=== PATIENT | male | born 1960 | race Caucasian/White ===

== ENCOUNTER → 2022-09-01 09:56 | Outpatient (CLI) | payer BC, SELFPAY ==
--- NOTE | 2022-09-01 09:56 | CT_ITS ---
FINAL REPORT TECHNIQUE: Noncontrast CT exam of the abdomen and pelvis. This study was performed with techniques to keep radiation doses as low as reasonably achievable (ALARA). Individualized dose reduction techniques using automated exposure control or adjustment of mA and/or kV according to the patient''s size were employed. CLINICAL HISTORY: left sided Abdominal pain FINDINGS: Abdomen: Lung bases are clear. Liver, spleen, pancreas and adrenal glands have a normal CT appearance in their limited unenhanced state. The patient is status post cholecystectomy. The kidneys show no stone disease or obstruction. No obvious renal mass is present. No ureteral stones are present. Pelvis: The appendix is not visualized. The prostate is unremarkable. There is no bowel obstruction. No distal ureteral stones are seen. The urinary bladder is decompressed. No fluid collection or adenopathy is seen. IMPRESSION: No acute findings or abnormality to account for symptoms. Reviewed, Interpreted and Dictated by Nikki Macias MD Transcribed by Genevieve Stanton Authenticated and [facility]
== END ==
PROVIDERS: PCP Family Medicine; Visit Provider Family Medicine
DX: R10.9 Unspecified abdominal pain (principal)
CPT/HCPCS: 74176

== ENCOUNTER → 2023-05-12 08:40 | Outpatient (CLI) | payer BC, SELFPAY ==
[2023-05-12 18:22] LABS: Basophils % 0.3 % (0.1-2.0); Eosinophils # 0.2 K/mm3 (0.0-0.4); Eosinophils % 2.7 % (0.1-12.0); Hematocrit 49.5 % (42.0-52.0); Lymphocytes # 1.8 K/mm3 (0.7-4.5); Lymphocytes % 20.8 % (10-50); Mean Corpuscular HGB Conc 32.4 g/dL (31.8-35.4); Mean Corpuscular Hemoglobin 28.9 pg (27.0-31.2); Mean Corpuscular Volume 89.2 fl (80-94); Mean Platelet Volume 9.5 fl (7.4-10.4); Monocytes # 0.7 K/mm3 (0.1-1.0); Monocytes % 8.6 % (1.7-9.3); Neutrophils # 5.8 K/mm3 (1.8-7.8); Neutrophils % 67.6 % (37.0-80.0); Platelet Count 271 K/mm3 (142-424); Red Blood Count 5.54 M/mm3 (4.60-6.20); Red Cell Distribution Width 14.1 % (11.5-17.5); White Blood Count 8.5 K/mm3 (4.8-10.8)
[2023-05-12 18:33] LABS: Alanine Aminotransferase 24 U/L (12-78); Albumin Level 4.2 g/dl (3.5-5.0); Albumin/Globulin Ratio 1.4 (1.1-1.8); Alkaline Phosphatase 90 U/L (38-126); Anion Gap 13.3 mEq/L (5-15); Aspartate Amino Transferase 28 U/L (17-59); Bilirubin,Total 0.6 mg/dl (0.2-1.3); Blood Urea Nitrogen 11 mg/dl (9-20); Calcium 9.4 mg/dl (8.4-10.2); Carbon Dioxide 25 mmol/L (22.0-30.0); Chloride 104 mmol/L (98-107); Chol/HDL Ratio 3.6 (1-3.5); Cholesterol 225 mg/dl (140-200); Estimated Glomerular Filt Rate 137 ml/min (>60); GFR (African American) 166 ML/MIN (>60); Glucose 117 mg/dl (74-100); HDL Cholesterol 63 mg/dl (40-60); Potassium 4.3 mmoL/L (3.5-5.1); Sodium 138 mmol/L (136-145); Total Protein,Serum 7.2 g/dl (6.3-8.2); Triglycerides 270 mg/dl (30-150); VLDL Cholesterol 54 mg/dL (0-40)
[2023-05-12 18:51] LABS: Direct LDL Cholesterol 108.41 mg/dL (100-129)
[2023-05-12 19:04] LABS: Prostate Specific Ag Screen 0.3 ng/ml (0.0-4.0); Thyroid Stimulating Hormone 1.05 uIU/mL (0.465-4.68)
== END ==
PROVIDERS: PCP Family Medicine; Visit Provider Family Medicine
DX: F41.9 Anxiety disorder, unspecified (principal)
CPT/HCPCS: 80053; 80061; 84443; 85025; G0103

== ENCOUNTER 2024-11-15 12:01 | Outpatient (CLI) | payer BC, SELFPAY ==
[2024-11-15 17:44] LABS: Basophils % 0.6 % (0.1-2.0); Eosinophils # 0.3 K/mm3 (0.0-0.4); Eosinophils % 4.4 % (0.1-12.0); Hematocrit 42.8 % (42.0-52.0); Hemoglobin 13.9 g/dL (14.1-18.0); Lymphocytes # 1.7 K/mm3 (0.7-4.5); Lymphocytes % 25.3 % (10-50); Mean Corpuscular HGB Conc 32.5 g/dL (31.8-35.4); Mean Corpuscular Volume 89.4 fl (80-94); Mean Platelet Volume 10.2 fl (7.4-10.4); Monocytes # 0.7 K/mm3 (0.1-1.0); Monocytes % 9.7 % (1.7-9.3); Neutrophils # 4.1 K/mm3 (1.8-7.8); Neutrophils % 59.6 % (37.0-80.0); Nucleated Red Blood Cells # 0 10^3/uL; Nucleated Red Blood Cells % 0 %; Platelet Count 239 K/mm3 (142-424); Red Blood Count 4.79 M/mm3 (4.60-6.20); Red Cell Distribution Width 13.9 % (11.5-17.5); Red Cell Distribution Width-SD 45.3 fL; White Blood Count 6.8 K/mm3 (4.8-10.8)
[2024-11-15 18:45] LABS: Hemoglobin A1C 5.4 % (4.0-6.0)
[2024-11-15 18:55] LABS: Alanine Aminotransferase 22 U/L (12-78); Albumin Level 3.9 g/dl (3.5-5.0); Albumin/Globulin Ratio 1.4 (1.1-1.8); Alkaline Phosphatase 80 U/L (38-126); Anion Gap 14.1 mEq/L (5-15); Aspartate Amino Transferase 24 U/L (17-59); Bilirubin,Total 0.5 mg/dl (0.2-1.3); Blood Urea Nitrogen 10 mg/dl (9-20); Calcium 9.2 mg/dl (8.4-10.2); Carbon Dioxide 24 mmol/L (22.0-30.0); Chloride 101 mmol/L (98-107); Chol/HDL Ratio 4.3 (1-3.5); Cholesterol 219 mg/dl (140-200); Estimated Glomerular Filt Rate 137 ml/min (>60); GFR (African American) 165 ML/MIN (>60); Globulin 2.8 g/dL (1.3-3.2); Glucose 116 mg/dl (74-100); HDL Cholesterol 51 mg/dl (40-60); Potassium 4.1 mmoL/L (3.5-5.1); Sodium 135 mmol/L (136-145); Total Protein,Serum 6.7 g/dl (6.3-8.2); Triglycerides 230 mg/dl (30-150); VLDL Cholesterol 46 mg/dL (0-40)
[2024-11-15 19:06] LABS: Direct LDL Cholesterol 114.71 mg/dL (100-129)
[2024-11-15 19:26] LABS: Prostate Specific Ag Screen 0.3 ng/ml (0.0-4.0); Thyroid Stimulating Hormone 0.79 uIU/mL (0.465-4.68)
[2024-11-15 19:38] LABS: HIV Combo NEGATIVE (Negative)
[2024-11-15 19:48] LABS: Hepatitis C Ab Qual. W/ RFX NEGATIVE (Negative)
--- OUTSIDE RECORDS SUMMARY | 2024-11-17 12:03 | XMS_ITS ---
Author Organization Unknown Medications Medication Instructions Effective Dates (start - stop) Status lorazepam 1 MG Oral Tablet 00:00:00.000+00 :00 - Completed dicyclomine hydrochloride 20 MG Oral Tablet [id number]:00:00.000+00 :00 - Completed clonidine hydrochloride 0.2 MG Oral Tablet 0511-68-26U02:00:00.000+00 :00 - Completed pravastatin sodium 40 MG Oral Tablet 0135-01-65I82:00:00.000+00 :00 - Completed metformin hydrochloride 500 MG Oral Tablet 7368-58-74Z91:00:00.000+00 :00 - Completed pravastatin sodium 40 MG Oral Tablet 6646-64-99W77:00:00.000+00 :00 - Completed lorazepam 1 MG Oral Tablet :00:00.000+00 :00 - Completed lorazepam 1 MG Oral Tablet :00:00.000+00 :00 - Completed betamethasone 0.5 MG/ML Topi fredy Cream 5198-15-47L37:00:00.000+00 :00 - Completed lorazepam 1 MG Oral Tablet :00:00.000+00 :00 - Completed clindamycin 300 MG Oral Capsule 7025-49-25C77:00:00.000+00 :00 - Completed lorazepam 1 MG Oral Tablet :00:00.000+00 :00 - Completed carvedilol 25 MG Oral Tablet 10-11-06:00:00.000+00 :00 - Completed fluticasone propionate 0.05 MG/ACTUAT Metered Dose Nasal [place]on 3310-78-04R43:00:00 .000+00 :00 - Completed amlodipine 10 MG Oral Tablet 09-18-11:00:00.000+00 :00 - Completed fluticasone propionate 0.05 MG/ACTUAT Metered Dose Nasal [place] 8972-64-10B05:00:00 .000+00 :00 - Completed [id number] 200 ACTUAT albuter ol 0.09 MG/ACTUAT Metered Dose Inhaler 2459-97-86A04:00:00.000 +00 :00 - Completed [id number] 200 ACTUAT albuter ol 0.09 MG/ACTUAT Metered Dose Inhaler 9359-28-69K73:00:00.000 +00 :00 - Completed hydralazine hydrochloride 50 MG Oral Tablet 0810-53-85A58:00:00.000+00 :00 - Completed hydrochlorothiazide 12.5 MG Oral Tablet 2103-38-95S25:00:00.000+00 :00 - Completed hydralazine hydrochloride 50 MG Oral Tablet 3800-81-29J64:00:00.000+00 :00 - Completed fluticasone propionate 0.05 MG/ACTUAT Metered Dose Nasal [place] 2739-57-05S13:00:00 .000+00 :00 - Completed fluticasone propionate 0.05 MG/ACTUAT Metered Dose Nasal [place] 9647-15-58I98:00:00 .000+00 :00 - Completed fluticasone propionate 0.05 MG/ACTUAT Metered Dose Nasal [place] 9654-22-13H99:00:00 .000+00 :00 - Completed lisinopril 40 MG Oral Tablet 09-15-12:00:00.000+00 :00 - Completed fluticasone propionate 0.05 MG/ACTUAT Metered Dose Nasal [place] 5651-20-34Y81:00:00 .000+00 :00 - Completed hydrochlorothiazide 12.5 MG Oral Tablet 1918-02-31E80:00:00.000+00 :00 - Completed hydrochlorothiazide 12.5 MG Oral Tablet 8265-09-18W56:00:00.000+00 :00 - Completed clindamycin 300 MG Oral Capsule 1282-31-21C16:00:00.000+00 :00 - Completed carvedilol 25 MG Oral Tablet 09-18-28:00:00.000+00 :00 - Completed fluticasone propionate 0.05 MG/ACTUAT Metered Dose Nasal [place] 1137-14-88B09:00:00 .000+00 :00 - Completed hydrochlorothiazide 12.5 MG Oral Tablet 7610-97-13C13:00:00.000+00 :00 - Completed carvedilol 25 MG Oral Tablet 10-08-09:00:00.000+00 :00 - Completed lisinopril 40 MG Oral Tablet 09-18-11:00:00.000+00 :00 - Completed amlodipine 10 MG Oral Tablet 09-15-12:00:00.000+00 :00 - Completed fluticasone propionate 0.05 MG/ACTUAT Metered Dose Nasal [place] 7404-35-27K13:00:00 .000+00 :00 - Completed lorazepam 1 MG Oral Tablet :00:00.000+00 :00 - Completed lorazepam 1 MG Oral Tablet :00:00.000+00 :00 - Completed amoxicillin 875 MG / clavula marshall 125 MG Oral Tablet 9990-96-35O02:00:00.000+00 :00 - Completed amlodipine 10 MG / benazepri l hydrochloride 40 MG Oral Capsule 8250-35-03V05:00:00.0 00+00 :00 - Completed polyethylene glycol 3350 236 000 MG / potassium chloride 2970 MG / sodium bicarbonate 6740 MG / sodium chloride 5860 MG / sodium sulfate 57278 MG Powder for Oral Solution [Gavilyte-G] 0785-35-90P84:00:00.000+00 :00 - Completed Patient Care team information Name Category Status Period Participants - - Proposed period not known -
--- OUTSIDE RECORDS SUMMARY | 2024-11-17 12:03 | XMS_ITS | Data Portability ---
Author Organization [place] - [facility] & [place] [facility] Address [address] [place] [address] Care Team Providers Care Battery Mechanic Name Role Phone MARCO ANTONIO LONG Primary Care Provider Assessment No assessment recorded. Plan of Treatment Reminders Order Date Submit Date Provider Last Modified By Organization Details Last Modified Time Details Appointments None recorded. Lab None recorded. Referral None recorded. Procedures home sleep testing (PROC) 023 023 ANTONI Reyes (Outpatient Surgery), [address] [place] [address] [place], [address], 3 13:52:26 Surgeries None recorded. Imaging XR, knee 023 023 hussain Duarte [facility], [address] [place] [address] [place], [address], 3 09:43:52 Medication Orders None recorded. Patient TargetsNo targets recorded. Patient InstructionsNo instructions recorded. Reason for Referral None Reported. Results Created Date Observation Date Name Description Value Unit Range Abnormal Flag Note LastModifiedBy Organization Detail LastModifiedTime 07/25/20 23 XR, knee No observ ation record ed. ANTONI [address] [place], [address], 07/25/2023 08:53:42 08/04/20 23 08/04/2023 home sleep testi ng (PROC ) No observ ation record ed. [facility] [address] [place] [address] [place], [address], 08/17/2023 08:45:04 Result Notes None recorded. Problems Name Problem SNOMED Code Status Onset Date Resolution Date Notes Provider Name and Address Organization Details Recorded Time Hypertensive disorder 33643806 Active Lawanda Paulo null, [place] - [facility] - [facility] & [place] 2 08:33:02 Sleep apnea 86883546 Active Lawanda Paulo null, [place] - [facility] - [place] & [place] 2 08:33:12 Seasonal allergic rhinitis 417054739 Active Lawanda Paulo null, [place] - [facility] - [facility] & [place] 2 08:33:23 Arthritis 8598278 Active Lawanda Paulo null, [place] - [facility] - [facility] & [place] 2 08:35:11 Tonsillar tag 26136673 Active Lawanda Paulo null, [place] - [facility] - [facility] & [place] 2 09:42:45 Problem Notes None recorded. Procedures Surgical History Date Name Laterality Status Provider Name and Address Organization Details Recorded Time 07/17/20 23 Fiberoptic Laryngoscopy completed Carmen Banerjee MD [address], [place], [address], [place] - [facility] - [place] & [place] 07/17/2023 09:50:10 01/17/20 23 Fiberoptic Laryngoscopy completed Carmen Banerjee MD [address], [place], [address], [place] - [facility] & [place] 01/16/2023 09:35:02 07/25/20 22 Fiberoptic Laryngoscopy completed Carmen Banerjee MD [address], [place], [address], [place] - [facility] - [facility] & [place] 07/25/2022 14:38:54 12/01/19 21 total knee replacement completed Lawanda Paulo [place] - [facility] - [place] & [place] 07/22/2022 08:37:57 10/06/19 21 cholecystectomy completed Lawanda Paulo [place] - [facility] - [facility] & [place] 07/22/2022 08:38:23 08/07/19 21 total knee replacement completed Lawanda Paulo [place] [facility] & [place] 07/22/2022 08:38:04 08/07/19 21 Other completed Lawanda Paulo [place] - [facility] - [facility] & [place] 07/25/2022 09:42:06 08/07/19 21 Joint Replacement completed Lawanda Paulo [place] - [facility] - [facility] & [place] 07/25/2022 09:42:06 08/07/19 20 Joint Replacement completed Lawanda Paulo [place] [facility] & [place] 07/25/2022 09:42:06 10/06/19 14 procedure on back completed Lawanda Paulo [place] [facility] & [place] 07/22/2022 08:36:03 08/07/19 14 Back Surgery completed Lawanda Paulo [place] [facility] & [place] 07/25/2022 09:42:06 colonoscopy completed Krissysanchez Souza [place] - [facility] - [place] & [place] 01/16/2023 09:11:49 Imaging Results Imaging Date Name Status LastModified by Organiz ation Details LastModified Time 07/25/2023 XR, knee completed ANTONI [address] [place], [address], 07/25/2023 08:53:42 08/04/2023 home sleep testing (PROC) completed [facility] [address] [place] [address] [place] [facility], [address], 08/17/2023 08:45:04 Procedure Notes None recorded. Medical Equipment None Reported. Allergies Allergen ID Allergen Name Allergen Category Reaction Reaction Severity Criticality Documentation Date Start Date Code Code System Note Provider Name and Address Organization Details Recorded Time 57356 Product containin g penicilli n (product) medicatio n Not available Not available Not available 07/22/2022 02387 8001 SNOMED Lawanda Paulo null, [place] - [facility] - [place] & [place] 08:40:13 Medications Name Sig Start Date Stop Date Status Note LastModified by Organization Details LastModified Time cyclobenzap rine 10 mg tablet TAKE ONE TABLET BY MOUTH EVERY 8 HOURS NEEDED active Not Available Not Available No t Available metformin 500 mg tablet TAKE ONE TABLET BY MOUTH EVERY DAY IN THE EVENING 01/16 completed Not Available Not Available Not Available carvedilol 25 mg tablet TAKE ONE TABLET BY MOUTH TWICE DAILY, must administe r with a meal/food active Not Available Not Available No t Available prednisone 10 mg tablet TAKE SIX TABLETS ON DAY ONE, TAKE FIVE TABLETS ON DAY TWO, TAKE 4 TABLETS ON DAY THREE, TAKE THREE TABLETS ON DAY FOUR, TAKE TWO TABLETS ON DAY FIVE AND TAKE ONE TABLET ON DAY SIX 07/22 completed Not Available Not Available Not Available clindamycin HCl 300 mg capsule TAKE FOUR CAPSULES BY MOUTH ONE hour BEFORE appointme nt active Not Available Not Available No t Available azithromyci n 250 mg tablet TAKE ONE TABLET BY MOUTH ONCE DAILY FOR FOUR DAYS 07/22 completed Not Available Not Available Not Available pravastatin 40 mg tablet TAKE ONE TABLET BY MOUTH EVERY DAY 01/16 completed Not Available Not Available Not Available hydralazine 25 mg tablet Take ONE tablet by MOUTH TWICE DAILY 07/22 completed Not Available Not Available Not Available amlodipine 5 mg tablet TAKE ONE TABLET BY MOUTH EVERY DAY active Not Available Not Available No t Available clonidine HCl 0.2 mg tablet take ONE tablet by MOUTH TWICE DAILY as needed 01/16 completed Not Available Not Available Not Available dicyclomine 20 mg tablet TAKE ONE TABLET BY MOUTH THREE TIMES DAILY NEEDED FOR abdominal discomfor t 07/07 completed Not Available Not Available Not Available amlodipine 10 mg tablet Take ONE tablet by MOUTH DAILY active Not Available Not Available No t Available betamethaso ne dipropionat e 0.05 % topical cream APPLY TO THE AFFECTED AREA(S) DAILY NEEDED active Not Available Not Available No t Available hydralazine 50 mg tablet TAKE ONE TABLET BY MOUTH TWICE DAILY active Not Available Not Available No t Available pravastatin 20 mg tablet TAKE ONE TABLET BY MOUTH AT BEDTIME 07/22 completed Not Available Not Available Not Available lorazepam 1 mg tablet TAKE ONE TABLET BY MOUTH EVERY 12-24 hours NEEDED FOR anxiety. USE sparingly when possible active Not Available Not Available No t Available albuterol sulfate HFA 90 mcg/actuati on aerosol inhaler INHALE TWO puffs BY MOUTH FOUR TIMES DAILY NEEDED active Not Available Not Available No t Available lisinopril 40 mg tablet TAKE ONE TABLET BY MOUTH DAILY active Not Available Not Available No t Available fluticasone propionate 50 mcg/actuati on nasal spray,suspe nsion SPRAY ONE SPRAY IN EACH NOSTRIL EVERY DAY active Not Available Not Available No t Available naproxen 500 mg tablet TAKE ONE TABLET BY MOUTH TWICE DAILY active Not Available Not Available No t Available amoxicillin 875 mg-potassiu m clavulanate 125 mg tablet Take 1 tablet by mouth 2 times per day for 10 days 01/16 completed Not Available Not Available Not Available azithromyci n 500 mg tablet TAKE ONE TABLET BY MOUTH DAILY FOR 3 DAYS active Not Available Not Available No t Available amlodipine 10 mg-benazepr il 40 mg capsule Take ONE capsule by MOUTH DAILY active Not Available Not Available No t Available hydrochloro thiazide 12.5 mg tablet TAKE ONE TABLET BY MOUTH EVERY DAY active Not Available Not Available No t Available GaviLyte-G 236 gram-22.74 gram-6.74 gram-5.86 gram oral solution take as directed by Dr. Pedraza office 01/16 completed Not Available Not Available Not Available Vitals Date Recorded Body height Body mass index (BMI) Body weight Oxygen saturation Oxygen saturation in Arterial blood by Pulse oximetry Heart rate Body temperature Systolic blood pressure Diastolic blood pressure Provider Name and Address Organization Details Last Updated DateTime 3 172.72 cm 45.2 kg/m2 819308. 93 g 97 % 97 % 77 /min 97.9 [degF] 168 mm[Hg] 90 mm[Hg] Krissy Souza [place] - [facility] & [place] 3 09:05:50 Date Recorded Body height Provider Name an d Address Organization Details Last Updated DateTime 07/25/2023 172.72 cm Ruth Gabriel [place] - [facility] & [place] 07/25/2023 08:49:36 Date Recorded Body height Body mass index (BMI) Body weight Body temperature Oxygen saturation Oxygen saturation in Arterial blood by Pulse oximetry Heart rate Systolic blood pressure Diastolic blood pressure Provider Name and Address Organization Details Last Updated DateTime 2 172.72 cm 45.8 kg/m2 985906. 3 g 96.2 [degF] 95 % 95 % 69 /min 182 mm[Hg] 90 mm[Hg] Lawanda Chakraborty [facility] & [place] 09:41:14 Social History Question Answer Notes LastModified by Organizat ion Details LastModified Time Tobacco Smoking Status Current Every Day Smoker Lawanda Bates null, [facility] [place] 07/22/2022 08:39:54 Do You Have An Advance Directive? No Information not available 07/25/2022 What Is Your Level Of Alcohol Consumption? Occasional [email or web address] Information not available 01/16/2023 Are You Blind Or Do You Have Difficulty Seeing? No Information not available 07/25/2022 What Is Your Level Of Caffeine Consumption? Moderate Information not available 07/25/2023 What Type Of Diet Are You Following? REGULAR Information not available 07/25/2023 What Was The Date Of Your Most Recent Tobacco Screening? 07/24/2022 Information not available 07/25/2022 At What Age Did You Start Smoking Tobacco? 32 Information not available 07/25/2023 How Much Tobacco Do You Smoke? 0.25 PPD [email or web address] Information not available 01/16/2023 Do You Feel Stressed (tense, Restless, Nervous, Or Anxious, Or Unable To Sleep At Night)? [id number] Information not available 07/25/2022 Do You Use Any Illicit Or Recreational Drugs? No [email or web address] Information not available 01/16/2023 How Many Years Have You Smoked Tobacco? 30 [email or web address] Information not available 01/16/2023 Do You Or Have You Ever Used Any Other Forms Of Tobacco Or Nicotine? No Information not available 07/25/2023 Sex: Unknown Functional Status Question Answer Note LastModified by Organizat ion Details LastModified Time What is your exercise level? Occasional Information not available 07/25/2022 Mental Status None recorded. Family History Relationship Description Onset Age of this Age Resolved Age Notes LastModified by Organization Details LastModified Time Mother Hypertensive disorder Not available 2021 08:39:26 Mother Malignant neoplastic disease [email or web address] Not available 07/25 08:43:15 Father Malignant neoplastic disease [email or web address] Not available 07/25 08:43:15 Medical History Condition Response Obesity Y Back Problems Y Obstructive Sleep Apnea Y Hypertension Y Past Encounters Encounter ID Performer Location Encounter Start Date Encounter Closed Date Diagnosis/Indication Diagnosis SNOMED-CT Code Diagnosis ICD10 Code Diagnosis Note [id number] Carmen Banerjee MD [facility] [address] [place] [place], [place] [phone] 07/25/2022 09:30:32 07/25/2022 10:17:26 Tonsillar tag [id number] J35.8 [id number] Carmen Banerjee MD [facility] [address] [place], [place] [id number] 01/16/2023 08:46:14 01/16/2023 09:32:59 Tonsillar tag [id number] J35.8 Stable. I do not feel this needs routine follow up at this point unless his symptoms change. Obstructiv e sleep apnea syndrome 98878242 G47.33 Needs a new CPAP with humidity as his is over 10 years old. [id number] Carmen Banerjee MD [facility] [address] [place] [address] [place] [phone] 07/17/2023 08:38:32 07/17/2023 09:41:54 Tonsillar tag [id number] J35.8 Stable. I do not feel this needs routine follow up at this point unless his symptoms change. He will call for any throat pain or ear pain that is persistent . Obstructiv e sleep apnea syndrome 86496462 G47.33 In order to get a new CPAP he needs a new sleep study. He is agreeable to a home study and will get set up through [facility]. [id number] MD GARRY Villarreal [facility] [address] [place] [phone] 07/25/2023 08:42:41 07/25/2023 09:14:36 History of bilateral total knee replacement [id number] 741676 Z96.653 Health Concerns Section Related Observation LastModified by Organization Detai ls LastModified Time None Recorded Concern Status LastModified by Organization Details LastModified Time None Recorded Advance Directives Directive N: Payers Encounter Date Sequence Insurance Name Policy Number Policy Taylor Covered Member ID Taylor Member ID Guarantor Name 07/25/2022 [place] [id number] Janice Benderer [id number] 01/16/2023 1 [place] [id number] Janice Harber [id number] 07/17/2023 1 [place] [id number] Janice Benderer [id number] 07/25/2023 1 [place] [id number] Janice Benderer [id number] Notes Date Note Type Note Provider Name and Address Organization Details Recorded Time 07/25/2022 text/html Pt is here today for a 6 month f/u on a lingual Tonsillar tag, states he is not having any problems. Only bothers him ocassionally when he swallows. He is also still smoking about a pack every 3-4 days. Carmen Banerjee MD [address], [place], [address], [facility] 07/25/2022 14:41:18 01/16/2023 text/html Patient is here for recheck of alejandra in throat, to be scoped. He wants to discuss using his CPAP machine and possibly upgrading it. He has had his CPAP machine for over 10 years and currently does not have humidity on his and feels he would benefit from that as he oftern has dry nose and congestion. Carmen Banerjee MD [address], [place], [address], [facility] 01/16/2023 09:40:57 07/17/2023 text/html Patient is here for 6 month follow up on right lingual tonsil tag. Denies any changes since his last visit. He did not get a new CPAP machine because he has not had a repeat sleep study in approximately 20 years. Carmen Banerjee MD [address] [facility], [place], [address], [facility] 07/17/2023 10:04:21 07/25/2023 text/html Pt is here for f /u with Xrays of his alexia knee replacements. DOS rt knee- 11/30/2020, DOS left knee- 07/27/2020. He reports he is doing well. No complaints-[id number] Hawk Vargas MD [address] [facility],[address], [place], [address], [facility] 07/26/2023 12:41:49
== END 2024-11-15 23:59 | disposition home or self-care (01) ==
LOC: LAB.DROPOF 11-17 12:01
PROVIDERS: PCP Family Medicine; Visit Provider Family Medicine
DX: I10 Essential (primary) hypertension (principal); L92.0 Granuloma annulare; F41.9 Anxiety disorder, unspecified; Z11.59 Encounter for screening for other viral diseases
CPT/HCPCS: 80053; 80061; 83036; 84443; 85025; 86803; 87389; G0103